=== PATIENT | female | born 1995 | race African-American/Black ===

== ENCOUNTER 2016-03-21 00:45 | Emergency (ER) | payer OTHER ==
[2016-03-21] MEDS ORDERED: ONDANSETRON *ODT* 4 MG TABLET SL ONE (01:24)
--- NOTE | 2016-03-21 01:24 | PDOC ---
History of Present Illness - General History Source: Patient Exam Limitations: No Limitations - History of Present Illness Initial Comments: 03/21/16 02:38 The patient is a 20 year old female with no PMH who presents to the ED with back pain, nausea and vomiting that began two days ago. The patient believes she got sick from her daughter. She denies abdominal pain and diarrhea. She also has complaints of generalized malaise and tactile fever. She denies any recent travels. Her LMP was last month. Social Hx: Denies smoking and drug use <Dina Black - Last Filed: 03/21/16 02:38> - General History Source: Patient <Jeffery Silva - Last Filed: 03/21/16 06:38> - General Chief Complaint: Pain Stated Complaint: BACK PAIN Time Seen by Provider: 03/21/16 01:22 Past History <Dina Black - Last Filed: 03/21/16 02:38> - Past Medical History Asthma: Yes - Psycho/Social/Smoking Cessation Hx Suicidal Ideation: No Smoking Status: No Smoking History: Never smoked Have you smoked in the past 12 months: No Number of Cigarettes Smoked Daily: 0 Information on smoking cessation initiated: No Hx Alcohol Use: No Drug/Substance Use Hx: No <Jerica Silvaan - Last Filed: 03/21/16 06:38> - Past Medical History Allergies/Adverse Reactions: Allergies Allergy/AdvReac Type Severity Reaction Status Date / Time No Known Allergies Allergy Verified 03/21/16 01:14 Home Medications: Ambulatory Orders No Home Medications 0 dose .ROUTE UTDICT 02/14/12 Ibuprofen 800 mg PO TID #30 tablet 03/21/16 Ondansetron [Zofran *Odt*] 4 mg SL TID #30 od.tablet 03/21/16 Pantoprazole Sodium [Protonix] 40 mg PO DAILY #30 tablet. 03/21/16 Review of Systems - Review of Systems Able to Perform ROS?: Yes Comments:: 03/21/16 02:39 CONSTITUTIONAL: +Generalized malaise, tactile fever. Absent:no chills EYES: Absent: visual changes ENT: Absent: ear pain, no sore throat CARDIOVASCULAR: Absent: chest pain, no palpitations RESPIRATORY: Absent: cough, no SOB GI: +nausea, vomiting Absent: abdominal pain, no constipation, no diarrhea GENITOURINARY: Absent: dysuria, no frequency, no hematuria MUSCULOSKELETAL: +Back pain SKIN: Absent: rash NEURO: Absent: headache <Dina Black - Last Filed: 03/21/16 02:38> *Physical Exam - Vital Signs Last Vital Signs Temp Pulse Resp BP Pulse Ox 98.5 F 75 20 116/67 99 03/21/16 01:15 03/21/16 01:15 03/21/16 01:15 03/21/16 01:15 03/21/16 01:15 - Physical Exam Comments: 03/21/16 02:39 GENERAL: Well-appearing, well-nourished. No apparent distress. HEENT: Normocephalic, atraumatic. PERRL, EOM intact. CARDIOVASCULAR: Normal S1, S2. Regular rate and rhythm. PULMONARY: Clear to auscultation bilaterally. ABDOMEN: Soft, non-distended, non-tender. EXTREMITIES: Normal ROM in all four extremities. No gross deformities. SKIN: Warm, dry. No rash NEUROLOGICAL: No focal neurological deficits. <Dina Black - Last Filed: 03/21/16 02:38> - Vital Signs Last Vital Signs Temp Pulse Resp BP Pulse Ox 98.5 F 75 20 116/67 99 03/21/16 01:15 03/21/16 01:15 03/21/16 01:15 03/21/16 01:15 03/21/16 01:15 <Jeffery Silva - Last Filed: 03/21/16 06:38> ED Treatment Course - Medications Given in the ED: ED Medications Discontinued Medications Generic Name Dose Route Start Last Admin Trade Name Freq PRN Reason Stop Dose Admin Ondansetron HCl 4 mg 03/21/16 01:24 03/21/16 01:33 Zofran Odt - SL 03/21/16 01:25 4 mg ONCE ONE Administration <Dina Black - Last Filed: 03/21/16 02:38> - LABORATORY CBC & Chemistry Diagram: 03/21/16 05:06 03/21/16 05:06 <Jeffery Silva - Last Filed: 03/21/16 06:38> Medical Decision Making - Medical Decision Making 03/21/16 06:36 Dr. Sinisterra: The scribe's documentation has been prepared under my direction and personally reviewed by me in its entirery. I confirm that the note above accurately reflects all work, treatment, procedures, and medical decision making performed by me. <Jeffery Silva - Last Filed: 03/21/16 06:38> *DC/Admit/Observation/Transfer - Attestations Scribe Attestion: 03/21/16 02:39 Documentation prepared by Dina Black, acting as medical art therapist for Jeffery Silva MD/DO. <Dnia Black - Last Filed: 03/21/16 02:38> - Discharge Dispostion Admit: No <Jeffery Silva - Last Filed: 03/21/16 06:38> Diagnosis at time of Disposition: Back pain Qualifiers: Back pain location: low back pain Back pain laterality: midline Sciatica presence: without sciatica Abdominal pain Qualifiers: Abdominal location: generalized Qualified Code(s): R10.84 - Generalized abdominal pain - Discharge Dispostion Disposition: HOME Condition at time of disposition: Stable - Prescriptions Prescriptions: Ibuprofen 800 mg PO TID #30 tablet Pantoprazole Sodium [Protonix] 40 mg PO DAILY #30 tablet. Ondansetron [Zofran *Odt*] 4 mg SL TID #30 od.tablet - Patient Instructions Printed Discharge Instructions: DI for Abdominal Pain-Adult
[2016-03-21] MEDS ORDERED: ONDANSETRON *ODT* 4 MG TABLET ONE (01:30)
[2016-03-21 02:54] LABS: URINE APPEARANCE SLCLOUDY; URINE BILIRUBIN NEGATIVE (NEGATIVE); URINE BLOOD NEGATIVE (NEGATIVE); URINE COLOR AMBER; URINE GLUCOSE (UA) NEGATIVE (NEGATIVE); URINE KETONE TRACE (NEGATIVE); URINE LEUK ESTERASE NEGATIVE (NEGATIVE); URINE NITRITE NEGATIVE (NEGATIVE); URINE UROBILINOGEN 2.0 E.U/dl E.U./dl (0.2-1.0)
[2016-03-21 02:56] LABS: URINE PROTEIN 1+ (NEGATIVE)
[2016-03-21 02:57] LABS: URINE BACTERIA FEW /hpf (NONE SEEN); URINE MUCUS MODERATE; URINE RBC 1 /hpf (0-3); URINE WBC 7 /hpf (3-5)
[2016-03-21 04:41] VITALS: BP 116/67; PULSE 75; TEMP 98.5; BMI 34.3
[2016-03-21] MEDS ORDERED: SODIUM CHLORIDE 1,000 ML IV STA (05:06)
[2016-03-21] MEDS ORDERED: KETOROLAC TROMETHAMINE 30 MG/1 ML VIAL IVPUSH ONE (05:06)
[2016-03-21] MEDS ORDERED: KETOROLAC TROMETHAMINE 30 MG/1 ML VIAL ONE (05:07)
[2016-03-21 05:20] LABS: BASOPHIL 0.6 % (0-2.0); EOSINOPHIL 2.3 % (0-4.5); MCH 25.7 pg (25.7-33.7); MCHC 31.7 g/dl (32.0-36.0); MEAN CELL VOLUME 81.1 fl (80-96); MEAN PLT VOLUME 8.3 fl (7.5-11.1); PLATELET COUNT 187 K/MM3 (134-434); RDW 14.4 % (11.6-15.6); WHITE BLOOD COUNT 3.5 K/mm3 (4.0-10.0)
[2016-03-21 05:45] LABS: ALBUMIN 3.3 g/dl (3.4-5.0); ALK PHOS 66 U/L (45-117); AMYLASE 49 U/L (25-115); ANION GAP 9 (8-16); BILIRUBIN,TOTAL 0.5 mg/dL (0.2-1.0); CO2 24 mmol/L (21-32); CREATININE 0.6 mg/dL (0.55-1.02); GLUCOSE,RANDOM 86 mg/dL (74-106); SGOT/AST 20 U/L (15-37); SGPT/ALT 24 U/L (12-78); TOT PROT 6.4 g/dl (6.4-8.2)
== END 2016-03-21 06:44 | disposition home or self-care (01) ==
LOC: JER 00:45
PROC: 3E0333Z Introduction of Anti-inflammatory into Peripheral Vein, Percutaneous Approach (ICD-10-PCS; principal; 2016-03-21)
DX: M54.5 Low back pain (principal)
CPT/HCPCS: 36415; 80053; 81003; 81015; 82150; 83690; 83735; 84703; 85025; 99282-25

== ENCOUNTER 2017-05-07 19:31 | Emergency (ER) | payer OTHER ==
[2017-05-07 20:02] VITALS: BP 95/45; PULSE 76; TEMP 97.8; BMI 29.7
[2017-05-07] MEDS ORDERED: ACETAMINOPHEN 1000 MG/100 ML VIAL (NON FORMULARY) IVPB ONE (21:31)
[2017-05-07] MEDS ORDERED: METOCLOPRAMIDE HCL INJECTION 10 MG/2 ML VIAL IVPB ONE (21:31)
[2017-05-07] MEDS ORDERED: SODIUM CHLORIDE 1,000 ML IV STA (21:31)
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
[2017-05-07] MEDS ORDERED: METOCLOPRAMIDE HCL INJECTION 10 MG/2 ML VIAL ONE (23:25)
[2017-05-07] MEDS ORDERED: ACETAMINOPHEN INJECTION 100 ML IVPB ONE (23:26)
[2017-05-07 23:53] LABS: BASO % 0.5 % (0-2.0); EOS % 0.5 % (0-4.5); HEMATOCRIT 34.9 % (32.4-45.2); HEMOGLOBIN 11.2 GM/dL (10.7-15.3); MCH 26.7 pg (25.7-33.7); MCHC 32.2 g/dl (32.0-36.0); MEAN PLT VOLUME 8.7 fl (7.5-11.1); PLATELET COUNT 213 K/MM3 (134-434); RDW 14.5 % (11.6-15.6); WHITE BLOOD COUNT 8.4 K/mm3 (4.0-10.0)
[2017-05-08 01:28] LABS: ALBUMIN 3.3 g/dl (3.4-5.0); ANION GAP 11 (8-16); BILIRUBIN,TOTAL 0.3 mg/dL (0.2-1.0); BLOOD UREA NITROGEN 9 mg/dL (7-18); CALCIUM 8.6 mg/dL (8.5-10.1); CHLORIDE 106 mmol/L (98-107); CO2 21 mmol/L (21-32); CREATININE 0.5 mg/dL (0.55-1.02); GLUCOSE,RANDOM 78 mg/dL (74-106); POTASSIUM 3.7 mmol/L (3.5-5.1); SGOT/AST 11 U/L (15-37); SGPT/ALT 14 U/L (12-78); SODIUM 138 mmol/L (136-145)
[2017-05-08 01:44] LABS: ALK PHOS 56 U/L (45-117); TOT PROT 6.1 g/dl (6.4-8.2)
== END 2017-05-08 02:08 | disposition home or self-care (01) ==
LOC: JER 19:31
PROC: 3E033NZ Introduction of Analgesics, Hypnotics, Sedatives into Peripheral Vein, Percutaneous Approach (ICD-10-PCS; principal; 2017-05-07)
PROC: 3E033GC Introduction of Other Therapeutic Substance into Peripheral Vein, Percutaneous Approach (ICD-10-PCS; 2017-05-07)
DX: O26.891 Other specified pregnancy related conditions, first trimester (principal); R10.30 Lower abdominal pain, unspecified; M54.5 Low back pain; V43.52XA Car driver injured in collision with other type car in traffic accident, initial encounter; Y92.411 Interstate highway as the place of occurrence of the external cause; Y93.89 Activity, other specified; Y99.8 Other external cause status; Z3A.01 Less than 8 weeks gestation of pregnancy
CPT/HCPCS: 36415; 76830-TC; 80053; 84702; 85025; 86850; 86900; 86901; 99282-25